=== PATIENT | male | born 1990 | race Two or more races ===

== ENCOUNTER 2020-09-12 10:27 | Emergency (ER) | payer MEDICAID ==
[~2020-09-12] VITALS: Ht 182.9 cm; Wt 97.8 kg
--- NOTE | 2020-09-12 10:57 | NUR ---
Assumed care of patient. C/O chest tighness and DA SILVA since this AM. Recently started on amlodipine for HTN. Reports heavy EtOH use and drank a beer this AM "to calm himself down". 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 Sinus tach. NAD. Will contiue to monitor.
[2020-09-12] MEDS ORDERED: LORazepam 2 MG/ML, 1ML ONE (11:54)
--- NOTE | 2020-09-12 11:59 | NUR ---
Resting in [facility]. RR = 16. No needs.
[2020-09-12] MEDS ORDERED: LORazepam 2 MG/ML, 1ML IVPush ONE (12:00)
[2020-09-12] MEDS ORDERED: SODIUM CHLORIDE 0.9% 1,000ML IVBOLUS ONE (12:00)
[2020-09-12] MEDS ORDERED: SODIUM CHLORIDE FLUSH 10ML SYR IVF ONE (12:00)
[2020-09-12 12:08] LABS: BASOPHILS % (AUTO) 1 % (0-1); EOSINOPHILS % (AUTO) 2 % (1-7); LYMPHOCYTES % (AUTO) 33 % (22-44); MEAN CORPUSCULAR HEMOGLOBIN 31.8 pg (27.5-34.5); MEAN PLATELET VOLUME 8.4 fL (7.4-10.4); MONOCYTES % (AUTO) 5 % (2-9); NEUTROPHILS % (AUTO) 60 % (42-75); PLATELET COUNT 296 x10^3/uL (130-400); RED BLOOD COUNT 5.46 x10^6/uL (4.38-5.82); RED CELL DISTRIBUTION WIDTH 12.9 % (9.4-14.8)
[2020-09-12 12:10] LABS: MD NO
[2020-09-12 12:18] LABS: ALBUMIN 4.3 g/dL (3.4-5.0); ANION GAP 7 mmol/L (5-15); CALCIUM 8.3 mg/dL (8.5-10.1); CHLORIDE 103 mmol/L (98-107)
[2020-09-12 12:23] LABS: ALANINE AMINOTRANSFERASE 100 U/L (12-78); ALKALINE PHOSPHATASE 90 U/L (45-117); BILIRUBIN,TOTAL 0.6 mg/dL (0.2-1.0); CREATININE 0.74 mg/dL (0.7-1.3); TOTAL PROTEIN 8.2 g/dL (6.4-8.2); TROPONIN I < 0.015 ng/mL (0.000-0.045)
[2020-09-12 12:45] VITALS: BP 134/80
--- NOTE | 2020-09-12 12:54 | NUR ---
Patient/Caregiver given discharge instructions and they have confirmed that they understand the instructions. Patient ambulatory with steady gait.
== END 2020-09-12 12:55 | disposition home or self-care (01) ==
LOC: ED 12:44
DX: R07.89 Other chest pain (principal); R94.5 Abnormal results of liver function studies; F10.139 Alcohol abuse with withdrawal, unspecified; R07.9 Chest pain, unspecified; Y90.0 Blood alcohol level of less than 20 mg/100 ml
CPT/HCPCS: 36415; 71045; 80053; 80320; 84484; 85025; 85379; 93005; 96361; 96374; 99285; J2060; J7030; G0480